=== PATIENT | female | born 1950 | race Caucasian/White ===

== ENCOUNTER 2018-09-30 13:48 | Observation (INO) | payer BC, MEDICARE ==
[~2018-09-30 13:48] MED LIST: CEFAZOLIN 2 GM/50 ML (PMX) 50 ML IVPB; SEVOFLURANE 15 MIN
[2018-09-30] MEDS ORDERED: INSULIN REGULAR, HUMAN 100 UNIT/1 ML 3ML VIAL (14:58)
[2018-09-30] MEDS: INSULIN REGULAR, HUMAN 100 UNIT/1 ML 3ML VIAL SC (15:00)
[2018-09-30] MEDS ORDERED: MIDAZOLAM 1 MG/ML 2 ML INJ (15:40)
[2018-09-30] MEDS ORDERED: ROCURONIUM 50 MG INJ (15:40)
[2018-09-30] MEDS ORDERED: PROPOFOL 20 ML (15:40)
[2018-09-30] MEDS ORDERED: CEFAZOLIN 1 GM INJ (15:40)
[2018-09-30] MEDS ORDERED: ROPIVACAINE 0.5 % 30 ML VIAL (15:41)
[2018-09-30] MEDS ORDERED: EPHEDrine 25 MG/5 ML SYG (16:53)
[2018-09-30] MEDS: POLYMYXIN/BACITRACIN 1L IRRIG IRR (17:14)
[2018-09-30] MEDS: VANCOMYCIN 1 GM INJ (18:19)
[2018-09-30] MEDS ORDERED: GLYCOPYRROLATE 0.4 MG INJ (18:51)
[2018-09-30] MEDS ORDERED: NEOSTIGMINE 3 MG/3 ML SYRINGE (18:51)
[2018-09-30] MEDS ORDERED: KETOROLAC 30 MG INJ (19:12)
[2018-09-30] MEDS ORDERED: METOCLOPRAMIDE 10 MG INJ (19:12)
[2018-09-30] MEDS ORDERED: DEXAMETHASONE 4 MG/ML 5 ML INJ (19:12)
[2018-09-30] MEDS ORDERED: ONDANSETRON 4 MG INJ (19:12)
[2018-09-30] MEDS ORDERED: ACETAMINOPHEN 325 MG TAB PO (19:30)
[2018-09-30] MEDS ORDERED: HYDROCODONE/APAP (5/325) TAB PO (19:30)
[2018-09-30] MEDS ORDERED: KETOROLAC 15 MG INJ IV (19:30)
[2018-09-30] MEDS ORDERED: morphine 2 MG INJ IV (19:30)
[2018-09-30] MEDS ORDERED: CEPASTAT LOZENGE MT (19:30)
[2018-09-30] MEDS ORDERED: DIPHENHYDRAMINE 50 MG INJ IV (19:30)
[2018-09-30] MEDS ORDERED: METOCLOPRAMIDE 10 MG INJ IV (19:30)
[2018-09-30] MEDS ORDERED: FAMOTIDINE 20 MG TAB PO (21:00)
[2018-09-30] MEDS ORDERED: [UNRECOGNIZED DRUG - OTHER] XX (22:00)
[2018-09-30] MEDS ORDERED: GLUCOSE GEL 15 GRAM TUBE BUCCAL (23:30)
[2018-09-30] MEDS ORDERED: GLUCAGON 1 MG INJ IM (23:30)
[2018-09-30] MEDS ORDERED: GLUCOSE GEL 15 GRAM TUBE PO ×2 (23:30)
[2018-09-30] MEDS ORDERED: DEXTROSE 50% 50 ML SYRINGE IV ×2 (23:30)
[2018-10-01] MEDS ORDERED: HYDROCHLOROTHIAZIDE 12.5 MG CAP PO ×3 (00:30→21:00)
[2018-10-01] MEDS ORDERED: LOSARTAN 50 MG TAB PO ×2 (00:30→21:00)
[2018-10-01] MEDS: AMLODIPINE 2.5 MG TAB PO (01:32)
[2018-10-01] MEDS: PANTOPRAZOLE (EC) 40 MG TAB PO (06:07)
[2018-10-01] MEDS: CEFAZOLIN 1 GM/50 ML (PMX) 50 ML IVPB ×4 (06:07→17:23)
[2018-10-01 06:19] LABS: ADD MAN DIFF? NO
[2018-10-01 06:35] LABS: BASOPHILS % 0.2 % (0.0-2.0); HEMATOCRIT 31.9 % (37.0-47.0); HEMOGLOBIN 11.2 g/dl (12.0-16.0); LYMPHOCYTES # 0.7 10^3/ul (0.8-2.9); LYMPHOCYTES % 6.4 % (15.0-51.0); MEAN CORPUSCULAR HEMOGLOBIN 36.1 pg (29.0-33.0); MEAN CORPUSCULAR HGB CONC 35.1 g/dl (32.0-37.0); MEAN CORPUSCULAR VOLUME 102.9 fl (82.0-101.0); MEAN PLATELET VOLUME 11.3 fl (7.4-10.4); MONOCYTE # 0.1 10^3/ul (0.3-0.9); MONOCYTES % 1.2 % (0.0-11.0); NEUTROPHIL # 10.3 10^3/ul (1.6-7.5); NEUTROPHILS % 91.7 % (39.0-77.0); PLATELET COUNT 208 10^3/UL (140-415); RED CELL DISTRIBUTION WIDTH 14.4 % (11.5-14.5)
[2018-10-01 06:35] LABS: WHITE BLOOD COUNT 11.2 10^3/ul (4.8-10.8)
[2018-10-01 06:41] LABS: ALANINE AMINOTRANSFERASE 19 IU/L (13-69); ALBUMIN/GLOBULIN RATIO 1.48; ALKALINE PHOSPHATASE 62 IU/L (42-121); ANION GAP 8 (5-13); ASPARTATE AMINO TRANSFERASE 26 IU/L (15-46); BLOOD UREA NITROGEN 34 mg/dl (7-20); CALCIUM 9.5 mg/dl (8.4-10.2); CARBON DIOXIDE 23 mmol/L (21-31); CHLORIDE 108 mmol/L (97-110); CREATININE 1.29 mg/dl (0.44-1.00); Estimated GFR 41 mL/min (>60); GLUCOSE 298 mg/dl (70-220); SODIUM 139 mmol/L (135-144); TOTAL PROTEIN 6.7 g/dl (6.1-8.1)
[2018-10-01 06:51] LABS: HEMOGLOBIN A1C 7.4 % (0-5.9)
[2018-10-01] MEDS: LEVOTHYROXINE 50 MCG TAB PO (07:35)
[2018-10-01] MEDS: ACCU-CHEK XX ×3 (08:30→16:59)
[2018-10-01] MEDS ORDERED: NON-FORMULARY/PATIENT OWN MED (Losartan-Hydrochlorothiazide (Losartan-HCTZ) 1 TAB) PO ×2 (09:00→21:00)
[2018-10-01] MEDS ORDERED: AMLODIPINE 2.5 MG TAB PO ×2 (09:00→21:00)
[2018-10-01] MEDS: LACTATED RINGER'S 1,000 ML IV ×2 (14:30)
[2018-10-01] MEDS: PT'S OWN INSULIN PUMP SC (16:59)
[2018-10-01] MEDS ORDERED: SPECIAL NON-STANDARD MEDICATION SC (17:35)
== END 2018-10-01 17:37 | disposition home or self-care (01) ==
LOC: SDS 13:48 → REC 19:08 → PP2 20:30
PROVIDERS: Podiatrist Foot & Ankle Surgery
DX: E11.621 Type 2 diabetes mellitus with foot ulcer (principal); L97.519 Non-pressure chronic ulcer of other part of right foot with unspecified severity; E11.610 Type 2 diabetes mellitus with diabetic neuropathic arthropathy; E11.42 Type 2 diabetes mellitus with diabetic polyneuropathy; E11.65 Type 2 diabetes mellitus with hyperglycemia; M20.5X1 Other deformities of toe(s) (acquired), right foot; L40.50 Arthropathic psoriasis, unspecified; E03.9 Hypothyroidism, unspecified; D62 Acute posthemorrhagic anemia; Z79.82 Long term (current) use of aspirin; Z79.4 Long term (current) use of insulin
CPT/HCPCS: 28750; 73620; 73630; 80053; 82962; 83036; 85025; 88304; 88311; G0378

== ENCOUNTER 2019-03-21 11:03 | Day surgery (SDC) | payer BC, MEDICARE ==
[2019-03-21] MEDS: BUPIVACAINE 0.25% (MPF) 30 ML INJ
[~2019-03-21 11:03] MED LIST changes: -CEFAZOLIN 2 GM/50 ML (PMX) 50 ML IVPB; +CLINDAMYCIN 900 MG/D5W (PMX) 50 ML IVPB; -SEVOFLURANE 15 MIN
[2019-03-21] MEDS ORDERED: PROPOFOL 200 MG INJ (13:45)
[2019-03-21] MEDS ORDERED: FENTAnyl 50 MCG/ML VIAL (13:46)
[2019-03-21] MEDS ORDERED: MIDAZOLAM 1 MG/ML 2 ML INJ (13:46)
[2019-03-21] MEDS ORDERED: LABETALOL HCL 20MG INJ (13:51)
[2019-03-21] MEDS ORDERED: CEFAZOLIN 1 GM INJ (14:51)
[2019-03-21] MEDS ORDERED: KETAMINE (50 MG/ML) 10 ML VIAL (14:51)
[2019-03-21] MEDS: POLYMYXIN/BACITRACIN 1L IRRIG (15:09)
== END 2019-03-21 16:30 | disposition home or self-care (01) ==
LOC: SDS 11:03
DX: E11.610 Type 2 diabetes mellitus with diabetic neuropathic arthropathy (principal); E11.621 Type 2 diabetes mellitus with foot ulcer; L97.512 Non-pressure chronic ulcer of other part of right foot with fat layer exposed; L97.522 Non-pressure chronic ulcer of other part of left foot with fat layer exposed; T84.84XA Pain due to internal orthopedic prosthetic devices, implants and grafts, initial encounter; Y83.8 Other surgical procedures as the cause of abnormal reaction of the patient, or of later complication, without mention of misadventure at the time of the procedure
CPT/HCPCS: 14040; 82962; 87070; 87075; 88300